=== PATIENT | female | born 1985 | race Caucasian/White ===

== ENCOUNTER 2020-04-21 09:40 | Outpatient (CLI) | payer OTHER ==
[~2020-04-21 09:40] MED LIST: ACETAMINOPHEN C PO; CEFTIN500 MG PO; PRENA1 SOFTGEL1 EACH PO
== END 2020-04-21 09:43 | disposition home or self-care (01) ==
LOC: MAMO-SONO 09:40
PROVIDERS: ATTEND Obstetrics & Gynecology
DX: Z12.31 Encounter for screening mammogram for malignant neoplasm of breast (principal); N60.11 Diffuse cystic mastopathy of right breast; N91.1 Secondary amenorrhea

== ENCOUNTER 2022-05-04 07:20 | Outpatient (CLI) | payer OTHER | END 2022-05-04 07:39 | disposition home or self-care (01) | LOC: MAMO-SONO 07:20 | PROVIDERS: ATTEND Obstetrics & Gynecology | DX: N60.11 Diffuse cystic mastopathy of right breast (principal) ==

== ENCOUNTER 2023-10-05 10:20 | Outpatient (CLI) | payer OTHER | END 2023-10-05 10:59 | disposition home or self-care (01) | LOC: MAMO-SONO 10:20 | DX: Z12.31 Encounter for screening mammogram for malignant neoplasm of breast (principal) ==

== ENCOUNTER 2025-09-26 13:25 | Outpatient (CLI) | payer OTHER | END 2025-09-26 14:28 | disposition home or self-care (01) | LOC: MAMO-SONO 13:25 | PROVIDERS: ATTEND Obstetrics & Gynecology Maternal & Fetal Medicine | DX: N60.11 Diffuse cystic mastopathy of right breast (principal) ==

== ENCOUNTER 2025-10-07 14:39 | Outpatient (CLI) | payer OTHER | END 2025-10-07 14:42 | disposition home or self-care (01) | LOC: MAMO-SONO 14:39 | PROVIDERS: ATTEND Obstetrics & Gynecology | DX: N60.11 Diffuse cystic mastopathy of right breast (principal) ==